=== PATIENT | male | born 1965 | race Caucasian/White ===

== ENCOUNTER 2016-12-01 03:18 | Observation (INO) | payer BC ==
--- NOTE | ~2016-12-01 | CN ---
Consultation Report [facility] [address] [place]. [address] NAME: LOPEZ QUINTANILLA : 65 STATUS : ADM Kari PAT#: [id number] AGE: 51 ADM/REG DATE : 12/01/16 MR#: [id number] REPORT SERV DATE: 12/01/16 DICTATED BY: BIAN JENSEN DATE: 12/01/16 REPORT STATUS : Draft TRANSCRIBED BY: MODL DATE: 12/01/16 CONSULTATION DATE OF CONSULTATION: REASON FOR CONSULTATION: Consultation for neck mass. REQUESTING PHYSICIAN AND SERVICE: Cardiology. HISTORY OF PRESENT ILLNESS: The patient is a 51-year-old male, with past medical history of significant coronary disease with VT x3, multiple stents, CABG, BiV pacer, hypertension, hyperlipidemia, chronic pain, COPD, tobacco use, who presents after having difficulty with holding food down, feeling sick, and chest pain. Additionally reports having right ear and throat pain that is radiating from right ear down to throat. This has occurred approximately five months ago, but also was resolved which he reports with Robaxin IV, but has started to recur again over the last five to six weeks. The patient reports that his concern is that he may have some type of malignancy as he has multiple family members that have had throat type cancers, and the patient does admit to smoking up to until five weeks ago which he has stopped. He has had episodes of very poor dentition requiring surgical removal and OMS removal top teeth in which he had an additional cardiac event during that episode, and prolonged ICU stay. However, this was also noted to be his source for bacteremic infection during that time. The patient reports that symptoms occur at jawline right-side and including his chin radiating down to his neck up into his chest wall cavity. Symptoms are essentially unrelenting, unimproved with the morphine that has been given and reports that Dilaudid helped in the past. No additional fevers or chills currently and symptoms are severe and worst and only down to 8 in 10 at best. He has been on Z-Hu intermittently and without issues. Again, no fevers have been documented while inpatient. PAST MEDICAL HISTORY: Coronary artery disease with VT, stents, CABG, hypertension, hyperlipidemia, chronic pain, as the patient was a retired wrestler; COPD, tobacco use, quit 5 weeks ago, prior history of coronary disease, and home O2. SURGICAL HISTORY: CABG x3, right knee surgery, appendectomy, wrist surgery BiV, he has had multiple teeth extractions under OMS. SOCIAL HISTORY: , but has 11 children and four grand children. Prior wrestler, but no longer keep exercise routine. He does have a long smoking history, but no smokeless tobacco. Quit 5 weeks ago. No alcohol or illicits. FAMILY HISTORY: Heart disease with bypasses and throat cancer. ALLERGIES: PENICILLIN, TORADOL, LYRICA, AND RANEXA. Consultation Report [address] [place]. [address] NAME: LOPEZ QUINTANILLA : 65 STATUS : ADM Kari PAT#: [id number] AGE: 51 ADM/REG DATE : 12/01/16 MR#: [id number] REPORT SERV DATE: 12/01/16 DICTATED BY: BINA JENSEN DATE: 12/01/16 REPORT STATUS : Draft TRANSCRIBED BY: CHRIS DATE: 12/01/16 HOME MEDICATIONS: Aspirin, Plavix, albuterol, Atrovent, metoprolol, nitroglycerin, Percocet, Spiriva, lisinopril, amlodipine, atorvastatin, metformin, Xanax, and multivitamin. REVIEW OF SYSTEMS: An additional 10-point review of systems negative except that noted in the HPI. PHYSICAL EXAMINATION: VITAL SIGNS: O2 sats 97%. Blood pressure 171/98, temperature 97.7, pulse 80, and respirations 20. GENERAL: Obese, mild discomfort. EYES: No scleral icterus. EOMI. HEAD: Normocephalic and atraumatic. ENT: Extremely poor dentition with fractured teeth on lower gumline. NECK: With mild tenderness and large lymph node on right cervical chain. No erythema. CHEST: Equal chest expansion. Increased AP diameter. RESPIRATORY: Good air flow. No increased work of breathing. No rales or no wheezes. CARDIOVASCULAR: Regular rate. No rubs. Cap refill less than 2 seconds. MUSCULOSKELETAL: Moves all extremities x4. ABDOMEN: Soft, nontender, nondistended. Bowel sounds positive. GENITOURINARY: Deferred. SKIN: Warm and dry. LYMPHATIC: Right-sided cervical mild lymphadenopathy. HEME: No bleeding or bruising. NEURO: Symmetrical strength in upper and lower extremities. Symmetrical smile. Eyes equally responsive to light. Tongue midline. PSYCH: Appropriate mood and affect. LABORATORY DATA: Troponin negative. TSH 1.62, free T4 0.81. Chest exam no acute pathology. BMP grossly within normal limits with glucose mildly elevated at 113. CBC also within normal limits with INR 0.9. ASSESSMENT: 1. Right neck pain. 2. Poor dentition. 3. Coronary artery disease. 4. Chronic pain. 5. Hypertension. 6. Chronic obstructive pulmonary disease. PLAN: 1. For right neck pain CT with contrast, head and neck, given risk factors. Check labs as ordered including CMV, EBV, and ESR. He does have smoking history, but quit five months ago. May require OMS evaluation, secondary to poor dentition or ENT evaluation. Hopefully with CT findings we can help further guide which direction. We will hold off antibiotics for now as the patient does not have additional SIRS symptoms, although, he Consultation Report [address] [place]. [address] NAME: LOPZE QUINTANILLA : 65 STATUS : ADM Kari PAT#: [id number] AGE: 51 ADM/REG DATE : 12/01/16 MR#: [id number] REPORT SERV DATE: 12/01/16 DICTATED BY: BINA JENSEN DATE: 12/01/16 REPORT STATUS : Draft TRANSCRIBED BY: CHRIS DATE: 12/01/16 does have very poor dentition. 2. Poor dentition. Prior OMS surgery. However, the patient did have complex recovery, due to his coronary disease. We will continue monitoring and workup as per CT results. 3. Coronary artery disease. Workup currently pending. 4. Chronic pain, on medications. The patient reports that he has better pain relief with Dilaudid than morphine. we try to give temporarily for breakthrough pain. 5. Hypertension, continue CCB, beta-hector, ALISHA inhibitor. 6. Chronic obstructive pulmonary disease. Continue O2. 7. All questions answered. Thank you for allowing us to assist in this patient's care. The patient does have difficulties with followup as he is still on wait list for PCP. We will try to schedule followup with [facility] at discharge to help followup for this event also. We will have medicine team to continue to follow. DANIELLE/CHRIS Bina Jensen MD / [id number] CC: Alba Dominguez, MSN, APPLICATION DEVELOPMENT INTERN-BC BUD TAYLOR
--- NOTE | ~2016-12-01 | HP ---
History And Physical [place] [address] [facility] [place]. [address] NAME: LOPEZ QUINTANILLA : 65 STATUS : ADM Kari PAT#: [id number] AGE: 51 ADM/REG DATE : 12/01/16 MR#: [id number] REPORT SERV DATE: 12/01/16 DICTATED BY: ALBA PARIKH DATE: 12/01/16 REPORT STATUS : Draft TRANSCRIBED BY: MODL DATE: 12/01/16 DATE OF ADMISSION: 12/01/2016 SENIOR PROGRAM MANAGER: Matthias Thomas M.D. CHIEF COMPLAINT: Unable to hold food down for two days; sick for four to five weeks; chest pain; and right ear and throat swelling and tenderness for six weeks. HISTORY OF PRESENT ILLNESS: A pleasant somewhat gruff 51-year-old white male with known history of CAD, reportedly multiple heart attacks, multiple stents, and bypass surgery performed three times in 2004, 2006, and 2008 per patient's report with reportedly recent collapse and flown to [facility] where Dr. Thomas inserted a BiV ICD on 01/2016. The patient states he has had no clear followup with Dr. Thomas since that implantation. He states his device has been interrogated once at an emergency room. Again, the patient states he has been unable to hold food down for two days, and he has felt sick for four to five weeks. He indicates his right neck and ear believing he may have an abscess of a tooth or "throat cancer." He also describes some midsternal chest pain that radiates under his left breast with associated weakness and fatigue. He reports some shortness of breath and nausea. He denies any diaphoresis. He reports some associated nausea, diaphoresis, and dizziness. Denies any shortness of breath or belching. At its most intense, he rates the chest pain 10/10. At the time of interview in the CPOU, he also rates it at 8/10. He describes it as "constant" somewhat dissimilar to previous cardiac events and the pain is reproducible on exam. He did try several doses of nitroglycerin with no improvement in his symptoms. He states that nitroglycerin as current and not outdated. Of note, the patient states he has been to walk-in clinic once or twice and given a Z-Hu for the right neck and throat discomfort, but that has seemingly not improved his symptoms. The patient self reports a personal history of heart attacks x3, stroke in 2006, and PE in 2007. The patient recently self-reports a temperature of a 100.1, afebrile now, rare palpitations. No syncopal events. Denies PND or orthopnea. PAST MEDICAL HISTORY: 1. CAD. a. HI x3. b. Reports multiple stents to unknown vessels. c. CABG three times in 2004 [place], 2006 [place], and 2008 [place], [place]. d. BiV AICD placed by Dr. Thomas approximately 01/2016. 2. Hypertension. 3. Dyslipidemia. 4. AODM. 5. Chronic pain syndrome (retired wrestler). 6. COPD. 7. Tobacco abuse. 8. Positive family history for CAD. 9. The patient reports use of home O2. History And Physical [address] [address] NAME: LOPEZ QUINTANILLA : 65 STATUS : ADM Kari PAT#: [id number] AGE: 51 ADM/REG DATE : 12/01/16 MR#: [id number] REPORT SERV DATE: 12/01/16 DICTATED BY: ALBA PARIKH DATE: 12/01/16 REPORT STATUS : Draft TRANSCRIBED BY: MODL DATE: 12/01/16 PAST SURGICAL HISTORY: 1. CABG x3 as stated above. 2. Right knee surgery. 3. Appendectomy. 4. Wrist surgery. 5. BiV AICD 01/[address] Thomas. SOCIAL HISTORY: He is with 11 children and four grandchildren. He is a retired wrestler. He does not have an exercise routine. He quit smoking two months ago per report, and prior to that was one pack per day for at least 11 years. Denies alcohol or illicits. FAMILY HISTORY: Mother with a heart attack and bypass in her 50s, in her 90s. Father in his 60s of a heart attack. Sister with a heart attack at 36, remains alive at 45. REVIEW OF SYSTEMS: A 14-point review of systems performed, significant for HPI. No other contributory diagnoses identified. ALLERGIES: ALLERGY TO PENICILLIN, NAUSEA AND VOMITING; TORADOL, HOT FLASHES AND RASH; LYRICA, SWELLING; RANEXA, CHEST CRAMPING. HOME MEDICATIONS: Aspirin 81 mg daily, clopidogrel 75 mg daily, albuterol nebulizer p.r.n., Atrovent nebulizer p.r.n., metoprolol tartrate 50 mg twice daily, nitroglycerin 0.6 mg patch 12 hours and 12 hours off, Percocet 10/325 four times daily p.r.n., Spiriva daily, insulin pen unknown type and dose, amlodipine 2.5 daily, lisinopril 5 mg daily, Xanax 1 mg three times daily, atorvastatin 40 mg nightly, metformin 500 mg nightly, and multivitamin daily. PHYSICAL EXAMINATION: VITAL SIGNS: Blood pressure 149/80, pulse 85, respirations 16, temperature 97.7, and O2 saturation 96% on room air. Height 5 feet 11 inches, weight 222 pounds, and BMI 31. GENERAL: Cooperative, in no apparent distress. HEENT: Pupils 2 mm, sclera nonicteric. Nares patent. Moist mucous membranes. No xanthelasma. NECK: Right neck tender on exam with noted fullness. LYMPH: No cervical lymphadenopathy. No supraclavicular lymphadenopathy. CHEST: Tender to palpation, left chest. LUNGS: Expiratory wheeze bilaterally. CARDIOVASCULAR: Regular rate. No murmur, rub or gallop appreciated. Extremities without edema. Pulses 2+ bilaterally. ABDOMEN: Soft, nontender, nondistended, normal bowel sounds auscultated throughout. No organomegaly. SKIN: Warm, dry extremities. No pallor, or cyanosis. PSYCHIATRIC: Appropriate affect. Alert, oriented x3. LABORATORY DATA: Troponin less than 0.02 x 3. Potassium 3.8, BUN 12, creatinine 1.02, glucose 113, magnesium 2.2. WBC 9.6, hemoglobin 15.6, hematocrit 46.8, and platelet count 205,000. History And Physical [address] [address] NAME: LOPEZ QUINTANILLA : 65 STATUS : ADM Kari PAT#: [id number] AGE: 51 ADM/REG DATE : 12/01/16 MR#: [id number] REPORT SERV DATE: 12/01/16 DICTATED BY: ALBA PARIKH DATE: 12/01/16 REPORT STATUS : Draft TRANSCRIBED BY: MODL DATE: 12/01/16 EKG: Paced rhythm. Echo, 11/2014: EF 45%. Mild global HK. Moderate diastolic dysfunction. PCI 06/2014 ([facility]): PTCA and BEN to vein graft to ramus. ASSESSMENT AND PLAN: 1. Substernal chest pain, reproducible in nature. The patient has been observed in the CPOU. Three sets of cardiac markers negative. EKG is paced. The patient has been held n.p.o. We will proceed with vasodilator stress test today. Home if low risk, no ischemia and/or transferred to hospital service if further workup and eval required. The patient will be asked to follow up with [facility] [place] if he is agreeable and Dr. Thomas as written. Also, we will ask case management to assist in locating a PCP to the patient's liking. 2. Right neck pain and swelling, questionable oral abscess versus patient's concerned about "throat cancer." Counseled Hospital Service to see. The patient reports a recent temperature elevation of 100.1, although afebrile here and reported a Z-Hu use recently. 3. Coronary artery disease. Continue home medications. 4. Probable ischemic cardiomyopathy with recent BiV AICD. Obtain records from [facility] and Dr. Thomas's office. The patient to follow up with Dr. Thomas in two to three weeks. 5. Chronic pain. Continue home medications. 6. Chronic obstructive pulmonary disease with wheeze, bronchodilator, nebulizer now and q.4 p.r.n. 7. No PCP. Case management to assist. PRISCILLA/CHRIS Alba Parikh, MSN, DATA SOFTWARE ENGINEER-BC / [id number] CC: Alba Parikh, MSN, DATA SOFTWARE ENGINEER-BC [facility] [place] Matthias Thomas M.D.
[2016-12-01 01:17] LABS: BASOPHILS 0.3 %; BASOPHILS ABSOLUTE 0.03 10/3/uL (0.0-0.16); EOSINOPHILS 5.4 %; EOSINOPHILS ABSOLUTE 0.52 10/3/uL (0.0-0.53); ER CBC TAT 0 Hrs 08 Mins; HEMATOCRIT 46.8 % (40.0-51.0); HEMOGLOBIN 15.6 g/dL (13.6-17.8); IMMATURE GRANULOCYTES 0.1 %; IMMATURE GRANULOCYTES ABSOLUTE 0.01 10/3/uL (0.0-0.11); LYMPHOCYTES 28.3 %; LYMPHOCYTES ABSOLUTE 2.71 10/3/uL (0.67-4.30); MANUAL DIFF NO %; MEAN CORPUS HGB CONC 33.3 g/dL (32.0-36.0); MEAN CORPUSCULAR HEMOGLOB 30.3 pg (26.0-34.0); MEAN CORPUSCULAR VOLUME 90.9 fL (80-100); MONOCYTES 6.3 %; NEUTROPHILS 59.6 %; NEUTROPHILS ABSOLUTE 5.71 10/3/uL (2.02-8.40); PLATELET COUNT 205 10/3/uL (150-400); RBC DISTRIBUTION WIDTH 13.4 % (12.0-16.0); RED CELL COUNT 5.15 10/6/uL (4.7-6.1); WHITE BLOOD CELLS 9.6 10/3/uL (4.5-10.5)
[2016-12-01 01:24] LABS: PARTIAL THROMBO TIME 29.2 SEC (22.5-37.2)
[2016-12-01 01:25] LABS: INTERNATIONAL NORMAL RATI 0.9 UNITS (-); PROTIME (NOT ORD) 11.5 SEC (12.0-14.5)
[2016-12-01 01:34] LABS: CALCIUM, SERUM 8.8 MG/DL (8.5-10.4); CHEST PAIN PROFILE TAT 0 Hrs 25 Mins; CHLORIDE, SERUM 104 MMOL/L (96-112); CO2 (CARBON DIOXIDE) 27 MMOL/L (24-34); CREATININE 1.02 MG/DL (0.70-1.30); GFR AFRICAN AMERICAN 98 ML/MIN (>=60); GFR NON AFRICAN AMERICAN 85 ML/MIN (>=60); POTASSIUM, SERUM 3.8 MMOL/L (3.5-5.3); SODIUM, SERUM 142 MMOL/L (135-148); TROPONIN I <0.02 NG/ML (<0.05)
[2016-12-01 01:35] LABS: BUN (BLOOD UREA NITROGEN) 12 MG/DL (6-23); GLUCOSE, SERUM 113 MG/DL (60-99)
[~2016-12-01 03:18] MED LIST: *UNABLE1; ALBUTEROL5 INH; ALEVE220 MG PO; ASAEC PO; ATROVENTUD INH; CLEOCIN300 MG PO; DIABETA5 PO; DIL2TAB PO; DULERA 200 MCG/13 GM INH; FOLIC PO; HALF81 PO; INSULIN PEN; KLONO1 PO; L40 PO; LOP50 PO; LORTAB PO; METOPROLOL PO; MICRONASE5 MG PO; MSCONT100 PO; NITROII30C TOP; NITROSTAT0.4 MG SL; NORV25 PO; NORV5 PO; NOVOPEN SC; OMNICEF300 PO; PERCOCET1 TA4 PO; PLAVIX PO; PRIN10 PO; PRIN5 PO; PROVENTSOL INH; SPIRIVA INH; STERAPDS12; SYMBICORT 160/41 INH INH; VITAMIN B-121000 MC1 SL; XANAX1 MG PO; ZANAFLEX 4 MG TA4 MG PO; ZESTRIL10 MG PO; ZOCOR40 PO
[2016-12-01] MEDS ORDERED: XANAX1 MG PO (04:04)
[2016-12-01] MEDS ORDERED: LIPITOR40 PO (04:09)
[2016-12-01] MEDS ORDERED: FORTAMET500 MG PO (04:11)
[2016-12-01] MEDS ORDERED: MULTIPLE VIT PO (04:12)
[2016-12-01 07:58] LABS: TROPONIN I <0.02 NG/ML (<0.05)
[2016-12-01 13:38] LABS: FREE T4 0.81 NG/DL (0.76-1.46)
[2016-12-01 17:45] LABS: SED RATE 5 MM/HR (0-15)
[2016-12-01 21:48] LABS: INFLUENZA A SCREEN NEGATIVE (NEGATIVE); INFLUENZA B SCREEN NEGATIVE (NEGATIVE)
[2016-12-02 13:00] LABS: EB VCA AB IGG Positive (Negative); EB VCA AB IGM Negative (Negative); EBV NUCLEAR AB IGG Positive (Negative)
[2016-12-02] MEDS ORDERED: IMDUR30 PO (14:39)
[2016-12-02] MEDS ORDERED: ZITHROMAX500 MG PO (14:40)
== END 2016-12-02 16:18 | disposition home or self-care (01) ==
LOC: ER 03:18 → CDU1 04:41 → CDU2 05:06
PROVIDERS: Clinical Nurse Specialist; Specialist; Student in an Organized Health Care Education/Training Program
DX: R07.2 Precordial pain (principal); R22.1 Localized swelling, mass and lump, neck; I25.10 Atherosclerotic heart disease of native coronary artery without angina pectoris; G89.29 Other chronic pain; E11.9 Type 2 diabetes mellitus without complications; I25.2 Old myocardial infarction; M19.90 Unspecified osteoarthritis, unspecified site; F41.9 Anxiety disorder, unspecified; J44.9 Chronic obstructive pulmonary disease, unspecified; Z86.711 Personal history of pulmonary embolism; Z87.891 Personal history of nicotine dependence; Z82.49 Family history of ischemic heart disease and other diseases of the circulatory system; Z95.5 Presence of coronary angioplasty implant and graft; Z95.0 Presence of cardiac pacemaker; Z90.49 Acquired absence of other specified parts of digestive tract; Z88.0 Allergy status to penicillin; Z88.6 Allergy status to analgesic agent; Z88.8 Allergy status to other drugs, medicaments and biological substances; Z98.890 Other specified postprocedural states; Z90.89 Acquired absence of other organs
CPT/HCPCS: 70491; 71020; 78452; 80048; 82962; 83735; 84439; 84443; 84484; 85025; 85610; 85652; 85730; 86140; 86644; 86645; 86664; 86665; 86665-59; 87040; 87070; 87389; 87804; 87880; 90686; 93005; 93017; 96374; 96375; 96376; 99285; A9270-GY; A9502; G0008; G0378; J0153; J1170; J2405; Q9967